=== PATIENT | female | born 1930 | race Caucasian/White ===

== ENCOUNTER 2016-05-26 10:17 | Observation (INO) | payer MEDICARE ==
[~2016-05-26] VITALS: Ht 162.6 cm; Wt 55.4 kg
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
[~2016-05-26 10:17] MED LIST: BIOFREEZE89 ML TP; DOK100 M1 PO; KENALOG LOTION60 M1 TP; MAALOX DPS30 ML PO; PEPCID DPS20 MG PO; TYLENOL-DPS325 MG PO; ZOLOFT DPS100 MG PO
[2016-05-28] MEDS ORDERED: PRESERVISION L1 EACH PO (14:35)
[2016-05-28] MEDS ORDERED: ASA325 MG PO (14:35)
[2016-05-28] MEDS ORDERED: DIOVAN80 MG PO (14:35)
[2016-05-28] MEDS ORDERED: VITAMIN D-32000 UNI1 PO (14:36)
[2016-05-28] MEDS ORDERED: TYLENOL DPS325 MG PO (14:37)
[2016-05-28] MEDS ORDERED: PROLIA60 MG/ML IM (14:37)
[2016-05-28] MEDS ORDERED: OYSTER SHELL C500 MG PO (14:37)
[2016-05-28] MEDS ORDERED: SURFAK DPS240 MG PO (14:38)
[2016-05-28] MEDS ORDERED: CEPACOL SORE T1 EAC1 PO (14:38)
[2016-05-28] MEDS ORDERED: MACROBID100 MG PO (14:39)
--- NOTE | 2016-05-29 07:04 | DS ---
ADMIT: 05/26/2016 RM/LOC: 401 [facility] MR#: [id number] [address] [address] [place] [address] Discharge Summary SEX: F AGE: 85 : 1930 ADMISSION DATE: 05/26/2016 DISCHARGE DATE: 05/27/2016 CONSULTATIONS: None. PROCEDURES: None. FINAL DIAGNOSES: 1. Urinary tract infection. 2. Dehydration. 3. History of TIA (transient ischemic attack). 4. Hypertension. 5. History of iron-deficiency anemia. 6. Osteoarthritis. 7. Osteoporosis. 8. Constipation. 9. Depression. REASON FOR ADMISSION: The patient is a pleasant 85-year-old female, who presented from assisted living facility to the emergency room with increasing diarrhea, weakness, and not feeling well. Found to have a UTI. Admitted for further stabilization given her profound weakness. HOSPITAL COURSE: The patient was rehydrated. Given antibiotics. She overall felt safe and improved on the next day of hospitalization. [place] safe to discharge to assisted living facility. Eating breakfast well. DISCHARGE INSTRUCTIONS: She will discharge to home. Continue her home medications as well as Macrobid 100 mg p.o. b.i.d. for 7 days. Follow up with her primary care provider, Sulema Cochran APRN, in the office in 7 days. José Miguel Hong MD/ freddie JOB #: [id number] CC: José Miguel Hong MD, Attending Physician José Miguel Hong MD, Family Physician
[2016-06-11] MEDS ORDERED: FLEXERIL DPS5 MG PO (20:14)
[2016-06-11] MEDS ORDERED: DUONEB DPS3 ML IH (20:14)
[2016-06-11] MEDS ORDERED: SENNA S TABLET1 EACH PO (20:17)
[2016-06-11] MEDS ORDERED: AUGMENTIN 875-1 EACH PO (20:17)
[2016-06-11] MEDS ORDERED: POLYETHYLENE GL17 GM PO (20:18)
--- NOTE | 2016-06-25 17:09 | ER ---
ADMIT: 05/26/2016 RM/LOC: 401 [facility] MR#: [id number] [address] [address] [place] [address] Emergency Room Report SEX: F AGE: 85 : 1930 DATE: 05/26/2016 ADDENDUM: CHIEF COMPLAINT: Weakness and decreased LOC. HISTORY OF PRESENT ILLNESS: This is an 85-year-old who lives at [facility]. She seemed a little bit sleepy this morning, so they left her alone and they went back in to check on her and she was hard to arouse. COURSE IN EMERGENCY ROOM: Sepsis along with a CT of the head was done. CT was negative for any acute findings. CBC is normal except for white count of 13.9, platelets 419. Lactic acid is 0.8. CMP is normal except for GFR of 58. Urine showed positive nitrites, 2+ leuks, and 18 white blood cells. EKG shows sinus rhythm at a rate of 67. Dr. Hong was called. This is Sulema Foote' patient, he is admitting for his group. CLINICAL IMPRESSION: 1. Urinary tract infection. 2. Diarrhea. 3. Generalized weakness. SANDY Kessler / Gómez Chávez MD / modl JOB #: [id number] CC: José Miguel Hong MD, Attending Physician José Miguel Hong MD, Family Physician
== END 2016-05-27 14:05 | disposition home or self-care (01) ==
LOC: ER 10:17 → 4PCU 13:15
PROVIDERS: ADMIT Internal Medicine
DX: N39.0 Urinary tract infection, site not specified (principal); E86.0 Dehydration; F32.9 Major depressive disorder, single episode, unspecified; I10 Essential (primary) hypertension; M19.90 Unspecified osteoarthritis, unspecified site; M81.0 Age-related osteoporosis without current pathological fracture; K59.09 Other constipation; Z86.73 Personal history of transient ischemic attack (TIA), and cerebral infarction without residual deficits; Z79.82 Long term (current) use of aspirin; Z79.899 Other long term (current) drug therapy; Z88.8 Allergy status to other drugs, medicaments and biological substances; Z95.0 Presence of cardiac pacemaker

== ENCOUNTER 2016-06-02 18:28 | Emergency (ER) | payer MEDICARE ==
[~2016-06-02 18:28] MED LIST changes: +ASA325 MG PO; +CEPACOL SORE T1 EAC1 PO; +DIOVAN80 MG PO; +MACROBID100 MG PO; +OYSTER SHELL C500 MG PO; +PRESERVISION L1 EACH PO; +PROLIA60 MG/ML IM; +SURFAK DPS240 MG PO; +TYLENOL DPS325 MG PO; +VITAMIN D-32000 UNI1 PO
--- NOTE | 2016-06-04 13:12 | ER ---
ADMIT: 06/02/2016 RM/LOC: ER [facility] MR#: [id number] [address] [address] [place] [address] Emergency Room Report SEX: F AGE: 85 : 1930 DATE: 06/02/2016 Regular physician is Sulema Cochran APRN CHIEF COMPLAINT: Bloody stools. HISTORY OF PRESENT ILLNESS: This is a pleasant 85-year-old female, who presents to the ED via EMS for evaluation. The patient states she had some clotted red blood in her stool last evening. Denies any episodes of bloody stooling today. The patient lives in the assisted living at [facility]. The patient admits to some constipation, states her last bowel movement last night. Denies any rectal pain or abdominal pain at this time. No nausea, vomiting, lightheadedness, or dizziness. The patient states she has never had any problems with bleeding previously. She states she has had a colonoscopy before and was not aware of any complications from the procedure. She states she otherwise felt well recently. She was seen on the 26 of May, diagnosed with UTI, currently finishing a course of Macrobid for this. PAST MEDICAL HISTORY: Significant for hypertension, chronic constipation, hypertension, anemia, IBS, and history of TIA and CVAs. COURSE IN THE ER: The patient was seen and examined. Physical exam was remarkable for a Hemoccult-positive stool. However, there was no evidence of any thrombosed rupture or bleeding hemorrhoids. No evidence of dark stool or active bleeding. Exam was otherwise unremarkable. Her vital signs have all been stable. While in the department, running in the 160s over 80s. Heart rate 92, respirations 14, temp 98.1. I did discuss this patient with Dr. Phipps, he felt it was appropriate for her to return back to this facility this evening and follow up with Sulema Foote later this week. IMPRESSION: Gastrointestinal bleeding with hematochezia. DISPOSITION: The patient was instructed to make an appointment to see Sulema Foote later this week. She was educated on the importance of either returning to the ED or phoning her primary care provider's office should she have any increased passage of bloody stools prior to seeing Sulema. She should continue home medications. The patient was discharged from the department in stable condition. SANDY Addison / Chase Chaudhry MD / christelle JOB #: [id number] CC: Gus Jeter MD, Attending Physician
--- NOTE | 2016-06-04 13:12 | ER ---
ADMIT: 06/02/2016 RM/LOC: [facility] MR#: [id number] [address] [address] [place] [address] Emergency Room Report SEX: F AGE: 85 : 1930 DATE: 06/02/2016 ADDENDUM: I did receive a call from the home health nurse, who works at her facility. She voiced her concern about increased weakness as well as clarified that the blood in her stool was in fact witnessed today. She stated that there was some red blood covering her stool as well as evidence of that in her brief that she was wearing. They are concerned that she is not safe to transfer by herself [facility] due to her strength and weakness. I did have the nurse ambulate with Desmond islas in the department. She was able to rise from bed on her own power and ambulated 100 yards with a wheeled walker. She was safe to transfer out of bed by herself with the use of walker for ambulation. The patient's daughter also called concerned about her UTI treatment that the antibiotic was not potentially clearing the infection. I looked up the culture results and sensitivity and found that the E. coli that was growing out was sensitive to the antibiotic she was placed on. I did reiterate with the daughter the importance of following up with Sulema Foote tomorrow for further evaluation of the GI bleeding as well as the concern with the UTI. The patient's daughter stated that they had already had an appointment scheduled for 11:00 tomorrow morning with Sulema Foote. I encouraged them to keep this appointment for further evaluation and management of this condition. I do feel that she is safe to [facility] given that she has close followup with Sulema tomorrow. Her vital signs continued to be stable in the 160/80. She is pleasant and converses and overall seems very stable in the department tonight. SANDY Addison / Chase Chaudhry MD / christelle JOB #: [id number] CC: Gus Jeter MD, Attending Physician
[2016-06-11] MEDS ORDERED: FLEXERIL DPS5 MG PO (20:14)
[2016-06-11] MEDS ORDERED: DUONEB DPS3 ML IH (20:14)
[2016-06-11] MEDS ORDERED: AUGMENTIN 875-1 EACH PO (20:17)
[2016-06-11] MEDS ORDERED: SENNA S TABLET1 EACH PO (20:17)
[2016-06-11] MEDS ORDERED: POLYETHYLENE GL17 GM PO (20:18)
== END 2016-06-02 20:55 | disposition home or self-care (01) ==
LOC: ER 18:28
DX: K92.1 Melena (principal); I10 Essential (primary) hypertension; Z86.73 Personal history of transient ischemic attack (TIA), and cerebral infarction without residual deficits; Z79.82 Long term (current) use of aspirin; Z79.899 Other long term (current) drug therapy

== ENCOUNTER 2016-06-05 15:38 | Inpatient (IN) | payer MEDICARE ==
[~2016-06-05] VITALS: Ht 162.6 cm; Wt 53.1 kg
--- NOTE | ~2016-06-05 | CO ---
ADMIT: 06/05/2016 RM/LOC: 531 [facility] MR#: [id number] [address] [address] [place] [address] Consultation SEX: F AGE: 85 : 1930 DATE OF CONSULTATION: 06/08/2016 ATTENDING PHYSICIAN: Antoni Payan CONSULTING PHYSICIAN: Kel Moreno MD ADDENDUM: This is an addendum to a consultation by SANDY Mcnulty. This is a pleasant, elderly patient with some bright red blood per rectum. She has had a colonoscopy done, but it has been many years ago, which looked normal. She has now had some bright red blood per rectum, some lower abdominal discomfort, so I was asked to see her for consultation for colonoscopy. On exam, her abdomen is soft, currently nontender. ASSESSMENT: Rectal bleeding. PLAN: I have recommended proceeding with colonoscopy. We will prep her today and plan on colonoscopy tomorrow. I have gone through the risks and benefits of this procedure with the patient. She understands all these and agrees to proceed. Kel Moreno MD/ christelle JOB #: [id number] CC: Antoni Payan, Attending Physician Sulema Cochran, Family Physician
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
--- NOTE | 2016-06-09 10:45 | CO ---
ADMIT: 06/05/2016 RM/LOC: 531 [facility] MR#: [id number] [address] [address] [place] [address] Consultation SEX: F AGE: 85 : 1930 DATE OF CONSULTATION: 06/08/2016 ATTENDING PHYSICIAN: Antoni Payan CONSULTING PHYSICIAN: Kel Moreno MD REASON FOR CONSULTATION: Anemia, lower gastrointestinal bleed. HISTORY OF PRESENT ILLNESS: Desmond is a very pleasant 85-year-old female, who has been admitted to the hospital and diagnosed with atypical pneumonia. Apparently, over the night, she had an episode of bright red blood per rectum. She has been taking any blood thinners. She has been on heparin and aspirin I believe for DVT prophylaxis and history of TIA and CVA, but the patient denies taking any other blood thinning medications. She denies ever having a prior events like this before. Her last colonoscopy was performed by Dr. Almaraz in 1998 that showed no abnormalities. She further denies any nausea, vomiting, abdominal pain, or diarrhea. She does struggle with constipation. PAST MEDICAL HISTORY: Significant for: 1. Depression. 2. Hypertension. 3. Anemia. 4. Irritable bowel disease. 5. Osteoarthritis. 6. Osteoporosis. 7. History of TIA and CVA. PAST SURGICAL HISTORY: Please see HPI. ALLERGIES: NORVASC AND TRAMADOL. MEDICATIONS: Well documented in chart. FAMILY HISTORY: The patient denies family history of any colon cancer. SOCIAL HISTORY: The patient denies any tobacco, alcohol, or illicit drug use. REVIEW OF SYSTEMS: CONSTITUTIONAL: The patient denies any fever, chills, night sweats. The rest of a comprehensive 10-point review of systems was performed and all other systems are negative. PHYSICAL EXAMINATION: GENERAL: The patient is in no acute distress. She is alert and oriented. HEENT: Head is normocephalic and atraumatic. EOMS are intact. Conjunctivae free of icterus, erythema, or pallor. Pinnae, free of deformities. Nose, midline. No tracheal deviation. NECK: Supple. SKIN: Negative for jaundice, clubbing, edema, pallor, or cyanosis. LUNGS: Normal respiratory effort. ADMIT: 06/05/2016 RM/LOC: 531 [facility] MR#: [id number] [address] [address] [place] [address] Consultation SEX: F AGE: 85 : 1930 HEART: Distal pulses intact. Regular rate and rhythm. ABDOMEN: Soft, nondistended, and nontender. RECTAL: Stool burden and rectal wall is difficult to palpate for internal hemorrhoids. No external hemorrhoids noted upon visualization. Bright red blood in stool noted. NEURO: Grossly intact. LABORATORY DATA: Hemoglobin is 10.9. ASSESSMENT: 1. Anemia. 2. Lower gastrointestinal bleed. PLAN: The plan is to have the patient undergo colonoscopy performed by Dr. Moreno tomorrow. I discussed the risks, alternatives, benefits, and complications with colonoscopy with the patient to which she has agreement of this plan, had all her questions answered, and would like to proceed. I will get her on the schedule and will get her prepped today. Thanks for the consultation of this patient. SANDY Mcnulty / Kel Moreno MD / christelle JOB #: [id number] CC: Antoni Payan, Attending Physician Sulema Cochran, Family Physician
[2016-06-11] MEDS ORDERED: DUONEB DPS3 ML IH (20:14)
[2016-06-11] MEDS ORDERED: FLEXERIL DPS5 MG PO (20:14)
[2016-06-11] MEDS ORDERED: SENNA S TABLET1 EACH PO (20:17)
[2016-06-11] MEDS ORDERED: AUGMENTIN 875-1 EACH PO (20:17)
[2016-06-11] MEDS ORDERED: POLYETHYLENE GL17 GM PO (20:18)
--- NOTE | 2016-06-13 21:25 | ER ---
ADMIT: 06/05/2016 RM/LOC: 531 [facility] MR#: [id number] [address] [address] [place] [address] Emergency Room Report SEX: F AGE: 85 : 1930 DATE: 06/05/2016 ADDENDUM: This patient comes to the ER because she has been weak over the last week. She was recently admitted to the hospital for urinary tract infection and dehydration. She denies any pain. It is just noted that she has been weak and normally walks by herself, today has trouble even walking to the restroom. On physical exam, she is alert. She denies any pain. Her abdomen is soft. Her lungs are clear. Her urine was negative for infection. White count 11.5, potassium 3.2. Lactic acid was 1.1. Prolactin was 0.5. Her chest x-ray showed a bilateral infiltrate. DIAGNOSES: 1. Pneumonia. 2. Weakness. IV of normal saline was started. I did consult with Dr. Alvarado concerning treatment of this patient. Because of her recent hospital stay, we treated this as hospital-acquired pneumonia. She was started on Zosyn. I did consult with Dr. Alvarado. I then spoke with Dr. Payan, and this patient will be admitted by him. Please refer to his dictation for further treatment. SANDY Velarde / Aniceto Alvarado MD / buckl JOB #: [id number] CC: Antoni Payan MD, Attending Physician Sulema Cochran APRN, Family Physician
--- NOTE | 2016-06-18 16:12 | DS ---
ADMIT: 06/05/2016 RM/LOC: 531 [facility] MR#: [id number] [address] [address] [place] [address] Discharge Summary SEX: F AGE: 85 : 1930 ADMISSION DATE: 06/05/2016 DISCHARGE DATE: 06/10/2016 DISCHARGE DIAGNOSES: 1. Atypical pneumonia. 2. Bright red rectal bleeding with a small ulcer at the anal verge. 3. Recent UTI (urinary tract infection). 4. Weakness, generalized. 5. Memory loss. 6. Hypertension. 7. History of CVA (cerebrovascular accident) and TIA (transient ischemic attack). 8. History of orthostatic hypotension. 9. Osteoarthritis. 10.Chronic constipation. 11.1 cm right mid lobe pulmonary nodule. DISCHARGE MEDICATIONS: Please refer to discharge medication list. DISCHARGE INSTRUCTIONS: She will be transferring to [facility] upon discharge. She is to have PT and OT. Regular diet. CBC and a BMP in one week. CONSULTANTS: Kel Moreno M.D. General Surgery, on June 08, consulted regarding bright red rectal bleeding and colonoscopy. PROCEDURES: June 09, 2016, colonoscopy. Colonoscopy noted a few scattered diverticula and evidence of small ulceration at the anal verge. Biopsies were taken of this. Biopsies are pending at the time of this report. HOSPITAL COURSE: An 85-year-old female admitted through the Emergency Room with weakness. She had had a recent UTI. Please refer to history and physical for complete details regarding admission. Chest x-ray during the Emergency Room evaluation noted bilateral opacities. She was started on treatment for pneumonia, started on IV Zosyn. The following day, on June 06, she had CT of the chest noting elevation of left hemidiaphragm with associated atelectatic changes and pleural thickening, fibrotic changes throughout the lungs, and indeterminate pulmonary nodule, 1 cm, right mid lobe. She was also started on nebulizers. She was given heparin for VTE prophylaxis. Potassium and magnesium were low at the time of admission, these were replaced. She was starting to feel better by the . Cough with some better, feeling a little bit better, eating better. She was continued on IV Zosyn. She had chronic back pain, which is a chronic problem for her secondary to her osteoarthritis. She was given a K-pad p.r.n. and her routine ADMIT: 06/05/2016 RM/LOC: 531 [facility] MR#: [id number] [address] [address] [place] [address] Discharge Summary SEX: F AGE: 85 : 1930 Tylenol was continued. On the , she had episode of bright red rectal bleeding. General surgery was consulted. She underwent a colonoscopy on June 09 and noting the ulcer at the anal verge. Otherwise, no obvious source of bleeding was noted. Biopsies were taken of the ulcer, pathology is pending at the time of this report. She had no further rectal bleeding after the colonoscopy. On the , she was in stable condition, labs were stable, hemoglobin of 11.7. Vital signs were stable, afebrile, 02 sats 90-95% on room air. She was dismissed to the longterm in stable condition. Lab: See lab summary for complete details. Radiology: See radiology report for complete details. Sulema Cochran APRN / Antoni Payan MD / maryse JOB #: [id number] CC: Antoni Payan MD, Attending Physician Sulema Cochran APRN, Family Physician
--- NOTE | 2016-06-28 12:38 | OR ---
ADMIT: 06/05/2016 RM/LOC: 531 [facility] MR#: [id number] [id number] [address] [address] [place] [address] Operative/Delivery Room Report SEX: F AGE: 85 : 1930 SURGERY DATE: 06/09/2016 SURGEON: Kel Moreno MD PREOPERATIVE DIAGNOSES: 1. Rectal bleeding. 2. Bright red blood per rectum. POSTOPERATIVE DIAGNOSES: 1. Few scattered diverticula. 2. Evidence of the small ulceration at the anal verge. PROCEDURE PERFORMED: Colonoscopy with cold biopsies at the anal verge. ANESTHESIA: Sedation. ESTIMATED BLOOD LOSS: None. DESCRIPTION OF PROCEDURE: After appropriate informed consent was obtained, the patient was brought to the endoscopy suite. IV sedation was provided. Rectal exam revealed some mild hemorrhoids. No rectal masses. The scope was introduced and passed through the entire length colon. She had a moderate prep, just some liquid stool throughout, and it was able to irrigate and suctioned out. She had a very few scattered sigmoid diverticula, nothing acutely inflamed. The scope was easily advanced past this area all the way to cecum. The ileocecal valve and appendicial orifice appeared normal. The scope was then slowly and carefully withdrawn. Again, the entire colonic mucosa inspected on the way out and this all appeared normal. The scope was retroflexed in rectum revealing a small ulcerated area right at the anal verge. Multiple biopsies were taken of this ulceration at the anal verge. It was pretty superficial, no active bleeding, there is no mass or tumor noted there. The scope was then removed without apparent complications. The patient tolerated the procedure well and was taken to the recovery stable condition. Kel Moreno MD/ christelle JOB #: [id number] CC: Antoni Payan, Attending Physician Sulema Cochran, Family Physician MD Sulema Mcdaniel, VENDING MACHINE OPERATOR
== END 2016-06-10 14:55 | DRG 194 ==
LOC: ER 15:38 → 5MS 20:37
PROVIDERS: ADMIT Internal Medicine
PROC: 0DBQ8ZX Excision of Anus, Via Natural or Artificial Opening Endoscopic, Diagnostic (ICD-10-PCS; principal; 2016-06-09)
DX: J18.9 Pneumonia, unspecified organism (principal); E87.0 Hyperosmolality and hypernatremia; N39.0 Urinary tract infection, site not specified; K62.5 Hemorrhage of anus and rectum; K62.6 Ulcer of anus and rectum; D64.9 Anemia, unspecified; G89.29 Other chronic pain; M54.2 Cervicalgia; M47.9 Spondylosis, unspecified; F32.9 Major depressive disorder, single episode, unspecified; R91.1 Solitary pulmonary nodule; K59.09 Other constipation; E87.6 Hypokalemia; K57.30 Diverticulosis of large intestine without perforation or abscess without bleeding; B96.20 Unspecified Escherichia coli [E. coli] as the cause of diseases classified elsewhere; I10 Essential (primary) hypertension; K58.9 Irritable bowel syndrome, unspecified; M19.90 Unspecified osteoarthritis, unspecified site; Z86.73 Personal history of transient ischemic attack (TIA), and cerebral infarction without residual deficits; Z79.82 Long term (current) use of aspirin; Z95.0 Presence of cardiac pacemaker

== ENCOUNTER 2016-06-20 07:46 | Inpatient (IN) | payer MEDICARE ==
[~2016-06-20] VITALS: Ht 162.6 cm; Wt 53.4 kg
[~2016-06-20 07:46] MED LIST changes: +AUGMENTIN 875-1 EACH PO; +DUONEB DPS3 ML IH; +FLEXERIL DPS5 MG PO; +POLYETHYLENE GL17 GM PO; +SENNA S TABLET1 EACH PO
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
--- NOTE | 2016-06-25 17:10 | ER ---
ADMIT: 06/20/2016 RM/LOC: ER [facility] MR#: [id number] [address] [address] [place] [address] Emergency Room Report SEX: F AGE: 85 : 1930 DATE: 06/20/2016 HISTORY OF PRESENT ILLNESS: An 85-year-old care home patient, brought to the Emergency Department with altered mental status times the past 24 hours. They had apparently drawn a UA on her yesterday. The patient is unable to provide much of a history. PHYSICAL EXAMINATION: GENERAL: She appears somewhat obtunded. LUNGS: Clear. CARDIOVASCULAR: Regular rate and rhythm. ABDOMEN: Soft. BEAUTY ADVISOR: With no focal findings. PERTINENT LABORATORY DATA: Sodium 151, bicarb 24, BUN 32, creatinine 1.7. DIAGNOSIS: The patient is being admitted with diagnosis of dehydration. Gómez Chávez MD/ christelle JOB #: [id number] CC: Gómez Chávez MD, Attending Physician Antoni Payan MD, Family Physician
--- NOTE | 2016-07-07 06:57 | DS ---
ADMIT: 06/20/2016 RM/LOC: [address] [facility] MR#: [id number] [address] [address] [place] [address] Discharge Summary SEX: F AGE: 85 : 1930 ADMISSION DATE: 06/20/2016 DISCHARGE DATE: 06/23/2016 DISCHARGE DIAGNOSES: 1. Aspiration with dysphagia. 2. Weakness. 3. Memory loss. 4. UTI (urinary tract infection). 5. Hypokalemia. 6. 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 7. Hypertension. 8. History of orthostatic hypotension. 9. DNR/DNI (do not resuscitate/do not intubate). DISCHARGE MEDICATIONS: Please refer to discharge medication list. ADDITIONAL DISCHARGE INSTRUCTIONS: Patient is dismissing back to custodial, [facility], and hospice to be consulting. She is a DNR/DNI status. HOSPITAL COURSE: The patient was admitted through the emergency room on June 20. She presented with altered mental status, weakness, and confusion. In the emergency room, she was found to be dehydrated with a creatinine of 1.7, sodium was also elevated at 151, custodial had also collected a UA due to concerns about a UTI, UA was abnormal and she was started on IV Zosyn. Please see H and P for complete details regarding admission. She was hydrated with IV fluids. Blood cultures were obtained, these were negative, procalcitonin was unremarkable. Chest x-ray was okay. There was concern about her weakness, dehydration, and aspiration, she was kept n.p.o., and Speech Therapy was consulted. Speech Therapy evaluated, bedside evaluation was completed and patient had overt signs and symptoms of aspiration. Palliative Care was consulted. She did have hypokalemia during hospitalization, potassium was replaced with IV potassium, she was unable to take p.o. potassium due to aspiration. She continued with hyponatremia, IV fluids were changed to D5 W and rates were increased. Sodium improved to 145 on the . She continued with Speech Therapy evaluation that continued to show aspiration, she was also extremely weak. Has had overall decline in the past year, decline has ADMIT: 06/20/2016 RM/LOC: [address] [facility] MR#: [id number] [address] [address] [place] [address] Discharge Summary SEX: F AGE: 85 : 1930 progressed worse over the last several months, generalized weakness, confusion, falls. Overall prognosis was discussed in length with daughter by Palliative Care and care providers. They elected to have a DNR status and ultimately decided upon hospice. She is transferring to skilled care on June 23, overall she is comfortable at this time, plans to have hospice consult at the custodial. LABORATORY SUMMARY: Please see labs for complete details. RADIOLOGY DATA: See radiology reports for complete details. She did have a repeat CT of the head on June 22, she has significant chronic white matter changes, no acute changes compared to last CT in May 26, 2016. Sulema Cochran APRN / José Miguel Hong MD / freddie JOB #: [id number] CC: José Miguel Hong MD, Attending Physician Sulema Cochran APRN, Family Physician
== END 2016-06-23 13:10 | DRG 640 ==
LOC: ER 07:46 → 4PCU 09:00
PROVIDERS: ADMIT Internal Medicine
DX: E86.0 Dehydration (principal); G93.41 Metabolic encephalopathy; N17.9 Acute kidney failure, unspecified; E87.0 Hyperosmolality and hypernatremia; I50.22 Chronic systolic (congestive) heart failure; R13.10 Dysphagia, unspecified; E44.1 Mild protein-calorie malnutrition; I11.0 Hypertensive heart disease with heart failure; N39.0 Urinary tract infection, site not specified; I95.1 Orthostatic hypotension; K58.9 Irritable bowel syndrome, unspecified; E83.52 Hypercalcemia; M19.90 Unspecified osteoarthritis, unspecified site; E87.6 Hypokalemia; F32.9 Major depressive disorder, single episode, unspecified; K59.09 Other constipation; Z91.419 Personal history of unspecified adult abuse; Z95.0 Presence of cardiac pacemaker; Z86.73 Personal history of transient ischemic attack (TIA), and cerebral infarction without residual deficits; Z79.82 Long term (current) use of aspirin; Z87.440 Personal history of urinary (tract) infections; Z66 Do not resuscitate